=== PATIENT | female | born 1980 | race African-American/Black ===

== ENCOUNTER 2019-11-27 13:10 | Emergency (ER) | payer MEDICAID ==
[~2019-11-27] VITALS: Ht 170.2 cm; Wt 82.0 kg
[2019-11-27] MEDS ORDERED: ACETAMINOPHEN 325MG TABLET PO PRN (14:30)
[2019-11-27 15:10] VITALS: BP 120/68
[2019-11-27 15:11] LABS: BASOPHILS % 0.3 % (0.0-2.0); HEMATOCRIT. 34.4 % (36.0-48.0); HEMOGLOBIN. 11.9 g/dL (12.0-16.0); LYMPHOCYTES % 19.8 % (20.0-50.0); MEAN CORPUSCULAR HEMOGLOBIN 30.1 pg (28.0-32.0); MEAN CORPUSCULAR VOLUME 87.3 fL (81.0-99.0); MEAN PLATELET VOLUME 8.9 fl (7.4-10.4); MONOCYTES % 7.9 % (2.0-8.0); PLATELET 195 x1000/uL (130-400); RED BLOOD CELL COUNT 3.94 mill/uL (4.2-5.4); RED CELL DISTRIBUTION WIDTH 13.3 % (11.6-14.6)
[2019-11-27 15:12] LABS: CHLORIDE 105 mEq/L (98-107)
[2019-11-27 15:14] LABS: PROTHROMBIN TIME 10.2 sec (9.6-11.0)
[2019-11-27 15:35] LABS: B-HCG QUANTITATIVE 44713 mIU/mL (<3)
== END 2019-11-27 16:33 | disposition home or self-care (01) ==
LOC: ER 13:10
DX: O26.891 Other specified pregnancy related conditions, first trimester (principal); N93.9 Abnormal uterine and vaginal bleeding, unspecified; I49.9 Cardiac arrhythmia, unspecified; Z3A.01 Less than 8 weeks gestation of pregnancy
CPT/HCPCS: 36415; 76700; 76801; 80053; 81025; 84702; 85025; 86850; 86900; 93005; 99285

== ENCOUNTER 2019-12-16 07:31 | Emergency (ER) | payer MEDICAID ==
[~2019-12-16] VITALS: Ht 165.1 cm; Wt 70.0 kg
[2019-12-16 10:20] LABS: CLARITY URINE CLEAR (CLEAR); COLOR URINE YELLOW (YELLOW); KETONES URINE NEGATIVE (NEGATIVE); LEUKOCYTE ESTERASE URINE 1+ (NEGATIVE); NITRITE URINE NEGATIVE (NEGATIVE); OCCULT BLOOD URINE 2+ (NEGATIVE); PH URINE 8.5 (4.5-8.0); PROTEIN URINE TRACE (NEGATIVE); SPECIFIC GRAVITY URINE 1.014 (1.005-1.030)
[2019-12-16 10:41] LABS: BASOPHILS % 0.4 % (0.0-2.0); EOSINOPHILS % 0.9 % (0.0-5.0); HEMATOCRIT. 34.7 % (36.0-48.0); HEMOGLOBIN. 11.8 g/dL (12.0-16.0); MEAN CORPUSCULAR VOLUME 87.8 fL (81.0-99.0); MEAN PLATELET VOLUME 8.5 fl (7.4-10.4); MONOCYTES % 8.2 % (2.0-8.0); NEUTROPHILS % 68.5 % (40.0-76.0); PLATELET 171 x1000/uL (130-400); RED BLOOD CELL COUNT 3.95 mill/uL (4.2-5.4); RED CELL DISTRIBUTION WIDTH 12.7 % (11.6-14.6)
[2019-12-16 10:45] LABS: CHLORIDE 106 mEq/L (98-107)
[2019-12-16 11:07] LABS: HCG SCREEN POSITIVE
[2019-12-16 11:32] VITALS: BP 115/78
[2019-12-16 11:33] LABS: PROTHROMBIN TIME 10.2 sec (9.6-11.0)
== END 2019-12-16 12:10 | disposition home or self-care (01) ==
LOC: ER 08:18
DX: O46.91 Antepartum hemorrhage, unspecified, first trimester (principal); O99.511 Diseases of the respiratory system complicating pregnancy, first trimester; R10.2 Pelvic and perineal pain; R82.71 Bacteriuria; Z3A.10 10 weeks gestation of pregnancy
CPT/HCPCS: 36415; 76801; 80053; 81003; 81025; 84703; 85025; 99284